=== PATIENT | male | born 1975 | race Caucasian/White ===

== ENCOUNTER 2018-11-13 07:02 | Emergency (ER) | payer MEDICAID ==
[2018-11-13 09:49] LABS: AMPHETAMINE URINE POSITIVE (NEGATIVE); METHAMPHETAMINES QUAL URINE POSITIVE (NEGATIVE)
[2018-11-13 09:51] LABS: BARBITURATES URINE NEGATIVE (NEGATIVE); BENZODIAZEPINES QUAL URINE NEGATIVE (NEGATIVE); CANNABINOID THC POSITIVE (NEGATIVE); COCAINE METABOLITE QUAL URINE NEGATIVE (NEGATIVE); METHADONE URINE NEGATIVE (NEGATIVE); OPIATES (MORPHINE) QUAL. URINE NEGATIVE (NEGATIVE); PHENCYCLIDINE (PCP) URINE NEGATIVE (NEGATIVE); TRICYCLICS (TCA) QUAL. URINE NEGATIVE (NEGATIVE)
--- NOTE | 2018-11-13 10:35 | Diagnostic Imaging Report ---
CT scan cervical spine HISTORY: Pain Total DLP equals 399 CTDI equals 19.7 Axial sections were obtained through the cervical spine. Additional sagittal and coronal reformatted images are provided. Exam demonstrates degenerative changes with hypertrophic spur formation noted about the endplates of C6-7. Narrowing of the C6-7 interspace. Spur formation results in a mild to moderate extradural indentation on the anterior spinal canal at this level. No acute abnormalities. No fractures. The prevertebral soft tissues appear normal. IMPRESSION: 1. No acute abnormalities 2. Degenerative changes most pronounced at C6-7
--- NOTE | 2018-11-13 10:35 | Diagnostic Imaging Report ---
CT scan thoracic spine HISTORY: Pain Total DLP equals 1767 CTDI equals 47.2 Axial sections were obtained through the thoracic spine. Additional sagittal and coronal reformatted images are provided. Mild degenerative changes are seen with small spur formation noted off the anterior margins of several lower thoracic vertebrae. Alignment is normal. Slight narrowing of several lower thoracic interspaces. No acute abnormalities. No fractures. No other definite extradural abnormalities. IMPRESSION: 1. No acute abnormalities 2. Degenerative changes
--- NOTE | 2018-11-13 10:49 | Diagnostic Imaging Report ---
Chest x-ray single view History: Shortness of breath The heart size is normal. No focal pulmonary parenchymal processes. No hilar or mediastinal abnormalities. Impression: No acute abnormalities
--- NOTE | 2018-11-13 10:50 | ED Physician Chart ---
ED Chief Complaint/HPI - Patient Information Date Seen:: 11/13/18 Time Seen:: 07:38 Chief Complaint:: left neck & shoulder blade pain History of Present Illness:: PATIENT PRESENTS TO THE ER WITH TWO DAY HX OF PAIN TO POSTERIOR NECK AND THORACIC SPINE AFTER LIFTING A HEAVY OBJECT; PATIENT ALSO STATES DYSPNEA FROM THE PAIN; NO OTHER TRAUMA, NO OTHER REMARKABLE S/S Allergies:: Allergies Allergy/AdvReac Type Severity Reaction Status Date / Time No Known Allergies Allergy Verified 11/13/18 07:38 Vitals:: Vital Signs - 8 hr 11/13/18 11/13/18 11/13/18 07:38 08:35 10:33 Temp 98.8 F 97.9 F 97.7 F HR 85 81 85 RR 22 16 17 BP 140/94 133/83 116/74 O2 Sat % 97 98 98 Historian:: Patient Review:: Nurse's Note Reviewed ED Review of Systems - Review of Systems General/Constitutional: No fever, No chills, No weight loss, No weakness, No diaphoresis, No edema, No loss of appetite Skin: No skin lesions, No rash, No bruising Head: No headache, No light-headedness Eyes: No loss of vision, No pain, No diplopia ENT: No earache, No nasal drainage, No sore throat, No tinnitus Neck: Neck pain Cardio Vascular: No chest pain, No palpitations, No PND, No orthopnea, No edema Pulmonary: SOB, No cough, No sputum, No wheezing GI: No nausea, No vomiting, No diarrhea, No pain, No melena, No hematochezia, No constipation, No hematemesis G/U: No dysuria, No frequency, No hematuria Musculoskeletal: Muscle pain, Other (left neck & shoulder blade pain) Endocrine: No polyuria, No polydipsia Psychiatric: No prior psych history, No depression, No anxiety, No suicidal ideation Hematopoietic: No bruising, No lymphadenopathy Allergic/Immuno: No urticaria, No angioedema Neurological: No syncope, No focal symptoms, No weakness, No paresthesia, No headache, No seizure, No dizziness, No confusion, No vertigo ED Past Medical History - Past Medical History Obtainable: Yes Past Medical History: No significant medical hx Family Medical History - Family Member Mother History Unknown: Yes ED Physical Exam - Physical Examination General/Constitutional: Awake, Well-developed, well-nourished, Alert, Ambulatory Other Gen/Cons comments:: very anxious and sob. Head: Atraumatic Eyes: Lids, conjuctiva normal, PERRL, EOMI Skin: Nl inspection, No rash, No skin lesions, No ecchymosis, Well hydrated, No lymphadenopathy ENMT: External ears, nose nl Other Neck comments:: left neck pain without muscle spasm. jumps to palpation of the left neck area. Respiratory: Nl effort/Exclusion, Clear to Auscultation, No Wheeze/Rhonchi/Rales Cardio Vascular: RRR, No murmur, gallop, rubs, NL S1 S2 GI: No tenderness/rebounding/guarding, No organomegaly, No hernia, Normal BS's, Nondistended, No mass/bruits, No McBurney tenderness : No CVA tenderness Extremities: No tenderness or effusion, Full ROM, normal strength in all extremities, No edema, Normal digits & nails Neuro/Psych: Alert/oriented, Normal sensory exam, Normal motor strength, Normal gait, No focal deficits Other Neuro/Psych comments:: very anxious, overly anxious and sob. Other Misc comments:: left neck pain without muscle spasm. jumps to palpation of the left neck area. c/o subjective mid back pain as well without muscle spasm. jumps to palpation of the mid back area. ED Labs/Radiology/EKG Results - Lab Results Results: Laboratory Tests 11/13/18 11/13/18 09:04 09:57 D-Dimer < 100 L Urine Opiates Screen NEGATIVE Urine Methadone Screen NEGATIVE Ur Barbiturates Screen NEGATIVE Ur Tricyclics Screen NEGATIVE Ur Phencyclidine Scrn NEGATIVE Amphetamines Screen POSITIVE H U Methamphetamines Scrn POSITIVE H U Benzodiazepines Scrn NEGATIVE U Cocaine Metab Screen NEGATIVE U Cannabinoids Screen POSITIVE H ED Assessment - Assessment General Assessment: CXR: NAD per my reading. EKG from 10:26:54 a.[address] normal sinus rhythm. CT of thoracic spine NAD. CT of cervical spine: DJD of C6-C7. drug screen positive for methamphetamine and cannabis. patient gave permission to roommates to be told about his health care and work up. they are his ride home. ED Septic Shock - . Is Septic Shock (SBP<90, OR Lactate>4 mmol\L) present?: No - <6hrs of presentation: Vital Signs: Vital Signs - 8 hr 11/13/18 11/13/18 11/13/18 07:38 08:35 10:33 Temp 98.8 F 97.9 F 97.7 F HR 85 81 85 RR 22 16 17 BP 140/94 133/83 116/74 O2 Sat % 97 98 98 ED Reassessment (Disposition) - Reassessment Reassessment Condition:: Improved - Diagnosis Diagnosis:: Methamphetamine abuse Cannabis abuse Neck pain, resolved Shoulder blade pain, resolved Shortness of breath - Aftercare/Follow up Instructions Aftercare/Follow-Up Instructions:: Refer to Discharge Instructions Notes:: follow up with primary care physician if problems continue. Medication Prescribed:: no prescriptions needed. - Patient Disposition Discharge/Transfer:: Home Condition at Disposition:: Stable, Improved
== END 2018-11-13 10:55 | disposition home or self-care (01) ==
LOC: ER 07:02
DX: F15.10 Other stimulant abuse, uncomplicated (principal); F12.10 Cannabis abuse, uncomplicated; R06.02 Shortness of breath
CPT/HCPCS: 99284; 96374; 96375; 93005; 71045; 72125; 72128; 84484; 36415; 85379; 80307; J1885; J2930; Z7502